=== PATIENT | female | born 1965 ===

== ENCOUNTER 2021-08-17 05:50 | Day surgery (SDC) | payer OTHER ==
[2021-08-17] MEDS ORDERED: ULTRACET PO (07:47)
== END 2021-08-17 10:35 | disposition home or self-care (01) ==
LOC: CIR.AMB 05:50 → EDBD 11:15 → CIR.AMB 13:45
PROVIDERS: ATTEND Surgery
DX: C54.1 Malignant neoplasm of endometrium (principal); F32.A Depression, unspecified; E66.9 Obesity, unspecified

== ENCOUNTER 2024-09-06 07:10 | Day surgery (SDC) | payer OTHER ==
[2024-09-02 14:19] VITALS: BP 137/82
[~2024-09-06] VITALS: Ht 165.1 cm; Wt 104.3 kg
[~2024-09-06 07:10] MED LIST: ULTRACET PO
[2024-09-06] MEDS ORDERED: CEFAZOLIN SODIUM 1,000 MG VIAL IV ONE (09:30)
[2024-09-06] MEDS ORDERED: TRAM1TAB98 PO (09:40)
== END 2024-09-06 12:00 | disposition home or self-care (01) ==
LOC: CIR.AMB 07:10
PROVIDERS: ATTEND Surgery
DX: C53.8 Malignant neoplasm of overlapping sites of cervix uteri (principal); T82.594A Other mechanical complication of infusion catheter, initial encounter